=== PATIENT | male | born 1985 | race Caucasian/White ===

== ENCOUNTER 2017-01-11 16:33 | Emergency (ER) | payer OTHER ==
[2017-01-11] MEDS ORDERED: Ketorolac 60 MG/2 ML SDV IM ONE (17:27)
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
[2017-01-11 21:09] VITALS: BP 120/71
--- NOTE | 2017-01-12 15:10 | CR ---
EXAM DATE: 01/11/17 PATIENT'S AGE: 31 EXAM DATE: 01/11/17 PATIENT'S AGE: 31 Patient: PABLO CARLSON Facility: [place], [place] Site . Site : 1985 Study: XRay Extremity Right [id number]/1/2017 5:53:11 PM Ordering Physician: Doctor Bell Final Report: INDICATION: Ankle pain TECHNIQUE: Ankle radiograph 3 views COMPARISON: None FINDINGS: Bones: Right ankle alignment is normal. Osteochondral defect suspected, involving the medial margin of the talar dome. Joint spaces: The visualized tibiotalar, subtalar, and midfoot joints are unremarkable in appearance. No joint effusion is seen. Soft tissues: Small amount of soft tissue swelling overlying the lateral malleolus. IMPRESSION: 1. Findings suspicious for subacute osteochondral defect, involving the medial talar dome. Consider correlation with MRI. 2. Mild degree of lateral right ankle soft tissue swelling. Dictated by Flash Ochoa MD @ 01/11/2017 6:25:18 PM Dictated by: Flash Ochoa MD @ 01/11/2017 18:25:29 (Electronic Signature) Report Signed by Proxy. PETRONA
== END 2017-01-11 20:45 | disposition home or self-care (01) ==
LOC: MW.ED 16:33
DX: M25.571 Pain in right ankle and joints of right foot (principal); Z88.0 Allergy status to penicillin; Z88.1 Allergy status to other antibiotic agents
CPT/HCPCS: 73610; 96372; 99283; J1885

== ENCOUNTER → 2017-01-18 | Outpatient (CLI) | payer OTHER ==
--- NOTE | 2017-01-19 11:34 | MR ---
EXAM DATE: 01/18/17 PATIENT'S AGE: 31 Patient: PABLO CARLSON Facility: [facility] Site . Site : 1985 Study: MRI-Extremity Right [id number]/8/2017 7:05:43 PM Ordering Physician: Jose Segura Final Report: HISTORY: Ankle injury. Right ankle pain. Technique: MRI right ankle without contrast. Comparison: Radiographs 01/11/2017. Findings: Tendons: Posterior tibial, flexor digitorum longus, and flexor hallucis longus tendons are intact. Peroneal tendons are intact. Extensor tendons are intact. Physiologic quantity of fluid in the tendon sheaths. Achilles tendon is intact. Ligaments: Anterior talofibular ligament is thickened and heterogeneous with increased signal consistent with low-grade sprain. No fluid-filled defect. Posterior talofibular ligament is intact. Calcaneofibular ligament is intact. Anterior and posterior tibiofibular ligaments are intact. Deltoid ligament is intact. Spring ligament is intact. Sinus tarsi is within normal limits. Joint spaces: 1.2 cm AP by 0.8 cm medial-lateral osteochondral lesion of the central medial talar dome. Associated osteochondral fragment. Marrow edema in the talus with small cysts at the interface of the osteochondral fragment. High- grade cartilage loss at the site of osteochondral lesion. No other focal ankle joint cartilage defect. Small ankle joint effusion. Subtalar, talonavicular, and calcaneocuboid joint spaces are maintained. Joint spaces of the midfoot and at the midfoot-forefoot junction are maintained. Bones: No fracture. Bone marrow edema in the anterolateral tibial plafond may be bone contusion versus stress changes. No marrow replacing process. Plantar aponeurosis: Imaged portions are normal. Other: Small multiloculated ganglion cyst posterior to the ankle joint and tibial plafond. Subcutaneous edema in the lateral ankle. Impression: 1. A 1.2 x 0.8 cm osteochondral lesion of the medial talar dome with potentially unstable fragment. High-grade cartilage loss at the site of osteochondral lesion. 2. Low-grade sprain of anterior talofibular ligament. 3. Bone contusion versus stress changes in the tibial plafond. Dictated by Sterling Eaton MD @ Jan 19 2017 9:30AM Signed by: Sterling Eaton MD @01/19/2017 9:30:44 AM (Electronic Signature) Report Signed by Proxy. MTDD
== END ==
LOC: MW.MRI 18:09
PROVIDERS: ATTEND Physician Assistant
DX: M25.571 Pain in right ankle and joints of right foot (principal); M93.971 Osteochondropathy, unspecified, right ankle and foot; S93.491A Sprain of other ligament of right ankle, initial encounter; X58.XXXA Exposure to other specified factors, initial encounter
CPT/HCPCS: 73721-26-RT; 73721-RT

== ENCOUNTER 2024-03-23 20:26 | Emergency (ER) | payer BC, OTHER ==
[2024-03-23 21:31] VITALS: BP 149/100; PULSE 84
== END 2024-03-23 22:08 | disposition home or self-care (01) ==
LOC: MW.ED 20:26
DX: G44.319 Acute post-traumatic headache, not intractable (principal); Z88.0 Allergy status to penicillin; Z75.8 Other problems related to medical facilities and other health care; Y04.8XXA Assault by other bodily force, initial encounter
CPT/HCPCS: 70450; 70450-26; 70486; 70486-26; 72125; 72125-26; 99283; 99284